=== PATIENT | male | born 1985 | race Two or more races ===

== ENCOUNTER 2018-09-02 09:43 | Inpatient (IN) | END 2018-09-03 13:35 | disposition home or self-care (01) | DRG 343 ==

== ENCOUNTER 2018-12-24 07:20 | Emergency (ER) | payer MEDICAID ==
[~2018-12-24] VITALS: Ht 172.7 cm; Wt 75.2 kg
[~2018-12-24 07:20] MED LIST: CEPH-443 PO; DOCU-144 PO; HYDR-4011 PO
[2018-12-24 07:41] VITALS: BP 114/82; PULSE 58; RESP 19; Ht 172.7 cm; Wt 75.2 kg
[2018-12-24] MEDS ORDERED: KETOROLAC 30 MG INJ IM STA (09:24)
[2018-12-24] MEDS ORDERED: METHOCARBAMOL 750 MG TAB PO ONE (09:30)
[2018-12-24] MEDS ORDERED: IBUP-1542 PO (11:32)
[2018-12-24] MEDS ORDERED: METH750T93 PO (11:32)
[2018-12-24] MEDS ORDERED: ACET-141 PO (11:32)
--- NOTE | 2018-12-24 11:38 | ERD ---
ER Documentation Chief Complaint Chief Complaint neck and head pain x 1 month HPI 33-year-old male presents for headache times 1 month. He states that the pain is intermittent. Is on the posterior side of the head. Denies dizziness or fever. He states that the pain is 8 out of 10. He did not try any treatments at home. Denies nausea vomiting. He did have similar symptoms in the past before. Otherwise denies significant past medical history. ROS All systems reviewed and are negative except as per history of present illness. Medications Home Meds Active Scripts Methocarbamol* (Robaxin*) 750 Mg Tablet, 750 MG PO TID PRN for MUSCLE SPASMS, #30 TAB Prov:ALEJANDRO PAEZ 12/24/18 Acetaminophen* (Acetaminophen*) 500 MG Extra Strength Tablet, 500 MG PO Q4H PRN for PAIN AND OR ELEVATED TEMP, #30 TAB Prov:PAEZALEJANDRO 12/24/18 Ibuprofen* (Motrin*) 600 Mg Tab, 600 MG PO Q6H PRN for PAIN AND OR ELEVATED TEMP, #30 TAB Prov:ALEJANDRO PAEZ DO 12/24/18 Docusate Sodium* (Colace*) 100 Mg Capsule, 100 MG PO BID, #60 CAP Prov:DOUGLAS,GIOVANI V. CERTIFIED ENERGY MANAGER 09/03/18 Hydrocodone/Acetaminophen (Coleraine 5-325 Tablet) 1 Each Tablet, 1 EACH PO Q6 for pain, #15 TAB Prov:DOUGLAS,GIOVANI V. CERTIFIED ENERGY MANAGER 09/03/18 Cephalexin* (Keflex*) 500 Mg Capsule, 500 MG PO Q6, #28 CAP Prov:DOUGLAS,GIOVANI V. CERTIFIED ENERGY MANAGER 09/03/18 Allergies Allergies: Coded Allergies: No Known Allergy (Unverified , 12/24/18) PMhx/Soc History of Surgery: Yes (appendectomy) Anesthesia Reaction: No Hx Neurological Disorder: No Hx Respiratory Disorders: No Hx Cardiac Disorders: No Hx Psychiatric Problems: No Hx Miscellaneous Medical Probl: No Hx Alcohol Use: Yes (socially) Hx Substance Use: No Hx Tobacco Use: No Physical Exam Vitals Vital Signs Date Temp Pulse Resp B/P (MAP) Pulse Ox O2 O2 Flow FiO2 Time Delivery Rate 12/24/18 97.8 58 19 114/82 97 07:41 (93) Physical Exam Const: No acute distress Head: Atraumatic, no temporal area tenderness to palpation Eyes: Normal Conjunctiva, pupils equal, round, reactive to light bilaterally ENT: Normal External Ears, bilateral tympanic membrane intact without erythema or bulging noted, Nose and Mouth examination normal. No tonsillar swelling or exudate noted Neck: Full range of motion. No meningismus, no bruits noted Resp: Clear to auscultation bilaterally Cardio: Regular rate and rhythm, no murmurs, bilateral radial and dorsalis pedis pulses intact Skin: No petechiae or rashes Ext: No cyanosis, or edema, 5 out of 5 muscular bilateral upper and lower extremities Neur: Awake and alert, bilateral upper and lower extremity sensation intact Psych: Normal Mood and Affect Result Diagram: 12/24/1845 12/24/1845 Results 24 hrs Laboratory Tests Test 12/24/18 09:45 White Blood Count 5.4 10^3/ul Red Blood Count 5.56 10^6/ul Hemoglobin 15.6 g/dl Hematocrit 47.0 % Mean Corpuscular Volume 84.5 fl Mean Corpuscular Hemoglobin 28.1 pg Mean Corpuscular Hemoglobin Concent 33.2 g/dl Red Cell Distribution Width 12.3 % Platelet Count 238 10^3/UL Mean Platelet Volume 9.1 fl Immature Granulocytes % 0.600 % Neutrophils % 64.4 % Lymphocytes % 25.2 % Monocytes % 8.8 % Eosinophils % 0.6 % Basophils % 0.4 % Nucleated Red Blood Cells % 0.0 /100WBC Immature Granulocytes # 0.030 10^3/ul Neutrophils # 3.5 10^3/ul Lymphocytes # 1.4 10^3/ul Monocytes # 0.5 10^3/ul Eosinophils # 0.0 10^3/ul Basophils # 0.0 10^3/ul Nucleated Red Blood Cells # 0.0 10^3/ul Sodium Level 142 mmol/L Potassium Level 4.6 mmol/L Chloride Level 103 mmol/L Carbon Dioxide Level 32 mmol/L Anion Gap 7 Blood Urea Nitrogen 15 mg/dl Creatinine 0.95 mg/dl Est Glomerular Filtrat Rate mL/min > 60 mL/min Glucose Level 95 mg/dl Calcium Level 10.2 mg/dl Total Bilirubin 0.4 mg/dl Direct Bilirubin 0.00 mg/dl Indirect Bilirubin 0.4 mg/dl Aspartate Amino Transf (AST/SGOT) 19 IU/L Alanine Aminotransferase (ALT/SGPT) 17 IU/L Alkaline Phosphatase 86 IU/L Total Protein 7.8 g/dl Albumin 4.8 g/dl Globulin 3.00 g/dl Albumin/Globulin Ratio 1.60 Current Medications Medications Dose Sig/Lesley Start Time Status Last (Trade) Ordered Route PRN Stop Time Admin Dose Reason Admin Ketorolac 30 mg ONCE STAT 12/24/18 DC 12/24/18 Tromethamine IM 09:24 09:43 (Toradol) 12/24/18 09:26 750 mg ONCE ONCE 12/24/18 DC 12/24/18 Methocarbamol PO 09:30 09:43 (Robaxin) 12/24/18 09:31 Procedures/MDM Medical Decision Making: Differential diagnosis includes but not limited to primary headache, subarachnoid hemorrhage, meningitis, temporal arteritis, glaucoma, hypertension, cerebral ischemia, carotid or vertebral arterial dissection, brain tumor. Patient appeared well on physical examination, nontoxic appearing. No history of fever. There is low suspicion for meningitis. Given patient's age and no temporal area tenderness to palpation, low suspicion for temporal arteritis. Patient has no vision changes and pupils are reactive bilaterally, low suspicion for glaucoma. There is also no focal neurologic deficits to suggest a brain tumor. Patient has normal sensation and muscle strength, low suspicion for cerebral ischemia. CBC: no e/o of systemic infection or severe anemia CMP: no e/o severe acidosis, alkalosis, renal failure, diabetic ketoacidosis, liver disease Given headache is similar to prior headaches, patient possibly has a primary headache. In the ER patient given Robaxin, Toradol Symptoms improved with treatment. Patient given prescription for Motrin, Tylenol, Robaxin Patient advised to follow up with PCP in 1-2 days. Patient advised to return to ED for new or worsening symptoms. Patient stable on discharge from the ED. Disclaimer: Inadvertent spelling and grammatical errors are likely due to EHR/dictation software use and do not reflect on the overall quality of patient care. Also, please note that the electronic time recorded on this note does not necessarily reflect the actual time of the patient encounter. Departure Diagnosis: Primary Impression: Headache Condition: Fair Patient Instructions: Self-Care for Headaches Referrals: COMMUNITY CLINICS YOU HAVE RECEIVED A MEDICAL SCREENING EXAM AND THE RESULTS INDICATE THAT YOU DO NOT HAVE A CONDITION THAT REQUIRES URGENT TREATMENT IN THE EMERGENCY DEPARTMENT. FURTHER EVALUATION AND TREATMENT OF YOUR CONDITION CAN WAIT UNTIL YOU ARE SEEN IN YOUR DOCTORS OFFICE WITHIN THE NEXT 1-2 DAYS. IT IS YOUR RESPONSIBILITY TO MAKE AN APPOINTMENT FOR FOLOW-UP CARE. IF YOU HAVE A PRIMARY DOCTOR --you should call your primary doctor and schedule an appointment IF YOU DO NOT HAVE A PRIMARY DOCTOR YOU CAN CALL OUR PHYSICIAN REFERRAL HOTLINE AT IF YOU CAN NOT AFFORD TO SEE A PHYSICIAN YOU CAN CHOSE FROM THE FOLLOWING [facility] [address] [facility] [address] [facility] [address] [facility] [address] [facility] [address] [facility] [facility]. [address] Additional Instructions: Llame al doctor MAANA y antoine usha MADELIN PARA DENTRO DE 1-2 KELLY.Dgale a la secretaria que nosotros le instruimos hacer esta madelin.Avise o llame si bailey condicin se empeora antes de la madelin. Regresa aqui si peor o no mejor. ALEJANDRO PAEZ DO Dec 24, 2018 11:38
== END 2018-12-24 12:39 | disposition home or self-care (01) ==
LOC: FTE 07:20
DX: R51 Headache (principal)
CPT/HCPCS: 80053; 85025; 96372; J1885; Z7502; Z7610

== ENCOUNTER 2019-06-15 12:09 | Emergency (ER) | payer MEDICAID ==
[~2019-06-15] VITALS: Ht 170.2 cm; Wt 75.3 kg
[~2019-06-15 12:09] MED LIST changes: +ACET-141 PO; +IBUP-1542 PO; +LORA-441 PO; +METH750T93 PO
[2019-06-15 12:11] VITALS: Ht 170.2 cm; Wt 75.3 kg
[2019-06-15] MEDS ORDERED: SOD CHLORIDE 0.9% 500 ML IV ONE ×2 (12:30→14:30)
[2019-06-15] MEDS ORDERED: LORAZEPAM 1 MG TAB PO ONE (12:30)
[2019-06-15] MEDS ORDERED: IBUPROFEN 200 MG TAB PO ONE (14:00)
[2019-06-15] MEDS ORDERED: HYDROCODONE/APAP (5/325) TAB PO ONE (14:00)
[2019-06-15 14:53] VITALS: BP 130/83; PULSE 93; RESP 18
== END 2019-06-15 14:55 | disposition home or self-care (01) ==
LOC: FTE 12:09
DX: F41.9 Anxiety disorder, unspecified (principal)
CPT/HCPCS: 80048; 80307; 81001; 84484; 85025; 93005; 96360; J7040; Z7502; Z7610; 81003